=== PATIENT | male | born 1955 | race Hispanic/Latino ===

== ENCOUNTER 2017-05-03 08:47 | Outpatient (CLI) | payer BC ==
[2017-05-03 09:25] LABS: Blood Urea Nitrogen 19 mg/dL (9-20)
[2017-05-03] MEDS ORDERED: NACL ONE (09:35)
--- NOTE | 2017-05-04 09:59 | Cat Scan Report ---
CT ANGIO ABD/FEMORAL ABD AORTA: HISTORY: Abdominal aortic aneurysm. COMPARISON: None. TECHNIQUE: Helical CT imaging with 1.25mm reconstructions following IV contrast. Sagittal and Coronal 2D reformatted images. 3 dimensional volume rendering technique. Stenosis was measured using NASCET criteria. FINDINGS: ABDOMINAL AORTA: Fusiform dilatation of the infrarenal aorta measures a maximum diameter 4.5 cm. No evidence for stenosis or dissection. There is a small amount of mural thrombus within the aneurysm sac. The celiac axis, SMA, SARAH BETH single left renal artery and dual right renal arteries are widely patent with less than 20% stenosis. ILIAC ARTERIES: Mild atherosclerotic plaques are noted in the common iliac arteries bilaterally. There is less than 20% stenosis in the bilateral common iliac arteries, external iliac arteries and right internal iliac artery. There is 75% stenosis at the origin of the left internal iliac artery. RIGHT LOWER EXTREMITY: The arterial structures in the right lower extremity are widely patent to the right ankle with less than 20% stenosis. LEFT LOWER EXTREMITY: The arterial structures in the left lower extremity are widely patent to the left ankle with less than 20% stenosis. Impression: Infrarenal AAA measures 4.5 cm. 75% stenosis at the origin of left internal iliac artery.
== END 2017-05-03 08:48 | disposition home or self-care (01) ==
LOC: CT 08:47
PROVIDERS: ATTEND Surgery Vascular Surgery
DX: I71.4 Abdominal aortic aneurysm, without rupture (principal); I70.8 Atherosclerosis of other arteries; Z87.891 Personal history of nicotine dependence
CPT/HCPCS: 36415; 75635; 82565; 84520; Q9967